=== PATIENT | female | born 1970 | race Caucasian/White ===

== ENCOUNTER 2019-04-23 10:41 | Emergency (ER) | payer BC ==
[2019-04-23 11:32] LABS: Absolute Lymphocytes (CBC) 1.4 K/uL (0.7-4.9); Basophils % 0.6 % (0-1.3); Lymphocytes % 22.6 % (15.3-44.8); RBC Red Blood Cell Count 4.83 M/uL (3.86-4.86)
[2019-04-23] MEDS ORDERED: NA CHLORIDE 0.9% 500 ML ONE ×2 (11:36→12:48)
[2019-04-23 11:52] LABS: Albumin 3.5 g/dL (3.4-5.0); Bilirubin Total 0.3 mg/dL (0.2-1.0); Magnesium 2.2 mg/dL (1.8-2.4); Protein, Total 7.1 g/dL (6.4-8.2)
--- NOTE | 2019-04-23 12:54 | EDPHYS ---
Physician Documentation [facility] Name: Alana Lowry Age: 49 yrs Sex: Female : 1970 Arrival Date: 04/23/2019 Time: 10:44 Bed 13 Private MD: David Harrison ED Physician Marjorie Mcclelland HPI: 04/23 11:05 This 49 yrs old Female presents to ER via Ambulatory with complaints of la1 Abnormal Lab Results. 11:05 The patient presents with abdominal pain in the left lower quadrant. Onset: The la1 symptoms/episode began/occurred 4 day(s) ago. The symptoms do not radiate. Associated signs and symptoms: Pertinent positives: fever, nausea. The symptoms are described as sharp. Modifying factors: The symptoms are alleviated by nothing, the symptoms are aggravated by alcohol. Severity of pain: At its worst the pain was mild. The patient has not experienced similar symptoms in the past. Pt reports flu like sx since Sunday, hx of renal issues, states she feels like her electrolytes are off. Pt is taking steroids chronically for assumed renal insufficiency, has increased her steroid dose at home already. was ill with similar sx earlier this week. . 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 - Social history:: Smoking status: Patient/guardian denies using tobacco. - Ebola Screening: : No symptoms or risks identified at this time. ROS: 11:07 Eyes: Negative for injury, pain, redness, and discharge, ENT: Negative for injury, la1 pain, and discharge, Neck: Negative for injury, pain, and swelling, Cardiovascular: Negative for chest pain, palpitations, and edema. 11:07 Back: Negative for injury and pain, : Negative for injury, bleeding, discharge, and swelling, MS/Extremity: Negative for injury and deformity, Neuro: Negative for headache, weakness, numbness, tingling, and seizure. 11:07 Constitutional: Positive for fever, Negative for poor PO intake. 11:07 Respiratory: Positive for cough, with green sputum. 11:07 Abdomen/GI: Positive for abdominal pain, Negative for vomiting. Exam: 11:08 Constitutional: This is a well developed, well nourished patient who is awake, alert, la1 and in no acute distress. Head/Face: Normocephalic, atraumatic. Eyes: Pupils equal round and reactive to light, extra-ocular motions intact. Periorbital areas with no swelling, redness, or edema. ENT: Mucous membranes moist. Neck: Trachea midline, no thyromegaly or masses palpated, and no cervical lymphadenopathy. Supple, full range of motion without nuchal rigidity, or vertebral point tenderness. No Meningismus. Chest/axilla: Normal chest wall appearance and motion. Nontender with no deformity. No lesions are appreciated. Cardiovascular: Regular rate and rhythm with a normal S1 and S2. No gallops, murmurs, or rubs. Normal PMI, no JVD. No pulse deficits. Respiratory: Lungs have equal breath sounds bilaterally, clear to auscultation No rales, rhonchi or wheezes noted. No increased work of breathing, no retractions or nasal flaring. Abdomen/GI: Soft, non-tender, with normal bowel sounds. No distension or tympany. No guarding or rebound. No evidence of tenderness throughout. Back: No spinal tenderness. No costovertebral tenderness. Full range of motion. MS/ Extremity: Pulses equal, no cyanosis. Neurovascular intact. Full, normal range of motion. Neuro: Awake and alert, GCS 15, oriented to person, place, time, and situation. Normal gait. Vital Signs: 10:57 BP 130 / 84; Pulse 92; Resp 16; Temp 97.8; Pulse Ox 98% ; Weight 81.65 kg; Height 5 ft. sv 0 in. (152.40 cm); Pain 0/10; 12:12 BP 108 / 72; Pulse 80; Resp 18; Pulse Ox 100% on R/A; aj1 13:39 BP 103 / 66; Pulse 82; Resp 18; Pulse Ox 97% on R/A; aj1 10:57 Body Mass Index 35.15 (81.65 kg, 152.40 cm) sv MDM: 10:54 Patient medically screened. la1 12:50 Data reviewed: vital signs, nurses notes, lab test result(s), and as a result, I will la1 discharge patient. Data interpreted: Pulse oximetry: on room air is 100 %. Interpretation: normal. Counseling: I had a detailed discussion with the patient and/or guardian regarding: the historical points, exam findings, and any diagnostic results supporting the discharge/admit diagnosis, lab results, the need for outpatient follow up, a family practitioner, to return to the emergency department if symptoms worsen or persist or if there are any questions or concerns that arise at home. Special discussion: Based on the patient's Hx, exam, and Dx evaluation, there is no indication for emergent surgery or inpatient Tx. It is understood by the patient/guardian that if the Sx's persist or worsen they need to return immediately for re-evaluation. I discussed with the patient/guardian that the patient's current presentation does not indicate dosing of antibiotics. They should follow-up with their primary care provider and return if the symptoms persist or progress. ED course: pt tolerating PO, moderate hyponartremia identified on labs which could also be chronic in nature, pt well educated on subject and will increase her sodium intake with salt and water at home. Pt given strict return precautions.. 04/23 11:05 Order name: CBC with Diff; Complete Time: 11:59 04/23 11:05 Order name: CMP; Complete Time: 11:59 04/23 11:05 Order name: Magnesium; Complete Time: 11:59 04/23 11:05 Order name: Flu; Complete Time: 12:10 04/23 11:05 Order name: IV; Complete Time: 11:29 la Administered Medications: 11:56 Drug: NS 0.9% 500 ml Route: IV; Rate: bolus; Site: right forearm; aj1 13:40 Follow up: IV Status: Completed infusion; IV Intake: 500ml aj1 12:49 Drug: NS 0.9% 500 ml Route: IV; Rate: bolus; Site: right forearm; aj1 13:40 Follow up: IV Status: Completed infusion; IV Intake: 500ml aj1 Disposition: 17:46 Co-signature as Attending Physician, Marjorie Mcclelland MD. ma2 Disposition: 04/23/19 12:53 Discharged to Home. Impression: Influenza due to certain identified influenza viruses, Hyponatremia. - Condition is Stable. - Discharge Instructions: Hyponatremia, Influenza, Adult, [id number], Hyponatremia, [id number], Rehydration, Adult. - Medication Reconciliation Form, Thank You Letter form. - Follow up: Private Physician; When: 2 - 3 days; Reason: Recheck today's complaints, Re-evaluation by your physician. Follow up: Emergency Department; When: As needed; Reason: Worsening of condition. - Problem is new. - Symptoms have improved. Signatures: Dispatcher [employer] EDMS Maddie Garza RN RN aj1 Marika Gonzalez RN RN sv Attema, Lee, TEACHER HOME THERAPY-C TEACHER HOME THERAPY-Cla1 Marjorie Mcclelland MD MD ma2 Corrections: (The following items were deleted from the chart) 13:40 12:53 04/23/2019 12:53 Discharged to Home. Impression: Influenza due to certain aj1 identified influenza viruses; Hyponatremia. Condition is Stable. Forms are Medication Reconciliation Form, Thank You Letter, Antibiotic Education, Prescription Opioid Use. Follow up: Private Physician; When: 2 - 3 days; Reason: Recheck today's complaints, Re-evaluation by your physician. Follow up: Emergency Department; When: As needed; Reason: Worsening of condition. Problem is new. Symptoms have improved. la1
--- NOTE | 2019-04-23 12:54 | ER ---
Nurse's Notes [facility] Name: Alana Lowry Age: 49 yrs Sex: Female : 1970 Arrival Date: 04/23/2019 Time: 10:44 Bed 13 Private MD: David Harrison Diagnosis: Influenza due to certain identified influenza viruses;Hyponatremia Presentation: 04/23 10:54 Presenting complaint: Patient states: body aches since Sunday, has hx of congenital sv hydrorenal hyprplasia and believes her electrolytes are "off". c/o lightheaded. Transition of care: patient was not received from another setting of care. Onset of symptoms was April 18, 2019. Risk Assessment: Do you want to hurt yourself or someone else? Patient reports no desire to harm self or others. Initial Sepsis Screen: Does the patient meet any 2 criteria? No. Patient's initial sepsis screen is negative. Does the patient have a suspected source of infection? No. Patient's initial sepsis screen is negative. Care prior to arrival: None. 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 - Social history:: Smoking status: Patient/guardian denies using tobacco. - Ebola Screening: : No symptoms or risks identified at this time. Screenin:30 Abuse screen: Denies threats or abuse. Denies injuries from another. Nutritional aj1 screening: No deficits noted. Tuberculosis screening: No symptoms or risk factors identified. 13:39 Fall Risk None identified. aj1 Assessment: 11:30 General: Appears in no apparent distress. comfortable, Behavior is calm, cooperative, aj1 appropriate for age. Pain: Denies pain. Neuro: Level of Consciousness is awake, alert, obeys commands, Oriented to person, place, time, situation. Cardiovascular: Patient's skin is warm and dry. Respiratory: Reports cough that is persistent Airway is patent Respiratory effort is even, unlabored, Respiratory pattern is regular, symmetrical, Breath sounds are clear bilaterally. Denies shortness of breath. GI: Abdomen is non-distended, Bowel sounds present X 4 quads. Reports nausea. : No signs and/or symptoms were reported regarding the genitourinary system. EENT: No signs and/or symptoms were reported regarding the EENT system. Derm: No signs and/or symptoms reported regarding the dermatologic system. Skin is pink, warm \\T\\ dry. normal. Musculoskeletal: No signs and/or symptoms reported regarding the musculoskeletal system. Circulation, motion, and sensation intact. 12:35 Reassessment: Patient appears in no apparent distress at this time. No changes from aj1 previously documented assessment. Patient and/or family updated on plan of care and expected duration. Pain level reassessed. Patient is alert, oriented x 3, equal unlabored respirations, skin warm/dry/pink. 12:55 Reassessment: Discharge pending completion of IV fluids. aj1 13:38 Reassessment: Patient appears in no apparent distress at this time. No changes from aj1 previously documented assessment. Patient and/or family updated on plan of care and expected duration. Pain level reassessed. Patient is alert, oriented x 3, equal unlabored respirations, skin warm/dry/pink. Vital Signs: 10:57 BP 130 / 84; Pulse 92; Resp 16; Temp 97.8; Pulse Ox 98% ; Weight 81.65 kg; Height 5 ft. sv 0 in. (152.40 cm); Pain 0/10; 12:12 BP 108 / 72; Pulse 80; Resp 18; Pulse Ox 100% on R/A; aj1 13:39 BP 103 / 66; Pulse 82; Resp 18; Pulse Ox 97% on R/A; aj1 10:57 Body Mass Index 35.15 (81.65 kg, 152.40 cm) sv ED Course: 10:44 Patient arrived in ED. as 10:44 David Harrison MD is Private Physician. as 10:54 [facility]C [facility] la1 10:54 Marjorie Mcclelland MD is Attending Physician. la1 10:55 Triage completed. sv 10:57 Arm band placed on Patient placed in an exam room, on a stretcher. sv 11:07 Maddie Garza, CLAUDY is Primary Nurse. aj1 11:30 Patient has correct armband on for positive identification. Bed in low position. Call aj1 light in reach. 11:30 No provider procedures requiring assistance completed. aj1 11:31 Initial lab(s) drawn, by me, sent to lab. Inserted saline lock: 22 gauge in right aj1 forearm, using aseptic technique. Blood collected. 13:39 IV discontinued, intact, bleeding controlled, No redness/swelling at site. Pressure aj1 dressing applied. Administered Medications: 11:56 Drug: NS 0.9% 500 ml Route: IV; Rate: bolus; Site: right forearm; aj1 13:40 Follow up: IV Status: Completed infusion; IV Intake: 500ml aj1 12:49 Drug: NS 0.9% 500 ml Route: IV; Rate: bolus; Site: right forearm; aj1 13:40 Follow up: IV Status: Completed infusion; IV Intake: 500ml aj1 Intake: 13:40 IV: 500ml; Total: 500ml. aj1 13:40 IV: 500ml; Total: 1000ml. aj1 Outcome: 12:53 Discharge ordered by MD. la1 13:39 Discharged to home ambulatory. aj1 13:39 Condition: good 13:39 Discharge instructions given to patient, Instructed on discharge instructions, follow up and referral plans. Demonstrated understanding of instructions, follow-up care. 13:40 Patient left the ED. aj1 Signatures: Maddie Garza RN RN aj1 Marika Gonzalez RN RN sv Martinez, Amelia as Attema, Lee, FOUNDRY FINISHER-C FOUNDRY FINISHER-Cla1
[2019-04-23 13:47] VITALS: TEMP 97.8
[2019-04-23 13:50] VITALS: BP 103/66; O2SAT 97
== END 2019-04-23 13:40 | disposition home or self-care (01) ==
LOC: ER 10:41
DX: E87.1 Hypo-osmolality and hyponatremia (principal); J10.1 Influenza due to other identified influenza virus with other respiratory manifestations; Z88.6 Allergy status to analgesic agent
CPT/HCPCS: 96361; 85025; 36415; 83735; 80053; 87804 ×2; 96360; 99283; J7040 ×2

== ENCOUNTER 2020-08-28 05:48 | Emergency (ER) | payer BC ==
[2020-08-28 07:21] LABS: Urine Blood 2+ (Negative); Urine Glucose Negative (Negative); Urine Protein Negative (Negative); Urine Specific Gravity 1.025 (1.005-1.030)
[2020-08-28] MEDS ORDERED: NA CHLORIDE 0.9% 1,000 ML ONE (07:52)
[2020-08-28] MEDS ORDERED: MORPHINE 4 MG/ML SYR ONE (07:52)
[2020-08-28] MEDS ORDERED: ONDANSETRON 4 MG/2 ML VIAL ONE (07:52)
[2020-08-28 07:54] LABS: Urine Bacteria >50 /HPF (<20); Urine RBC NONE SEEN /HPF (NONE SEEN)
[2020-08-28 07:55] LABS: Urine Specific Gravity/Preg 1.025 (1.005-1.030)
[2020-08-28 08:01] LABS: Absolute Lymphocytes (CBC) 2.7 K/uL (0.7-4.9); Basophils % 0.8 % (0-1.3); Hematocrit 44.9 % (36.0-45.0); Lymphocytes % 22.2 % (15.3-44.8); MPV 7.8 fL (7.6-11.3); RBC Red Blood Cell Count 4.93 M/uL (3.86-4.86)
[2020-08-28] MEDS ORDERED: CEFTRIAXONE/SWI 1gm 1 GM/10 ML SYR ONE (08:17)
[2020-08-28 09:19] LABS: Albumin 3.7 g/dL (3.4-5.0); Bilirubin Direct 0.1 mg/dL (0-0.2); Bilirubin Total 0.5 mg/dL (0.2-1.0); Potassium 4.3 mmol/L (3.5-5.1); Protein, Total 7.8 g/dL (6.4-8.2)
--- NOTE | 2020-08-28 09:20 | RAD REPORT ---
EXAM DESCRIPTION: CTAbdomen Pelvis W Contrast - 08/28/2020 8:18 am CLINICAL HISTORY: Abdominal pain. Abd pain;Flank pain COMPARISON: [facility] Protocol dated 08/16/2015 TECHNIQUE: Biphasic CT imaging of the abdomen and pelvis was performed with 100 ml non-ionic IV cont rast. All CT scans are performed using dose optimization technique as appropriate and may include automated exposure control or mA/KV adjustment according to patient size. FINDINGS: The lung bases are clear. Mild diffuse fatty liver is present. There is subtle area of diminished density seen in region of españa creatic head and uncinate process. The spleen, right adrenal gland kidneys are within normal limits. 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 No bowel obstruction, free air, free fluid or abscess. Moderate stool is present throughout the colon with diverticulosis present. The appendix is normal. No evidence of significant lymphadenopathy. Mild lumbar degenerative spondylosis. Small fat containing umbilical hernia. IMPRESSION: Mild diffuse fatty liver. Subtle diminished density in the region of the pancreatic head and uncinate process without evidence pancreatic ductal dilatation. Focal fatty infiltration is a possibility, however recommend nonemergen t MRI abdomen followup to further assess the pancreas.
[2020-08-28 09:23] LABS: Urine Blood Negative (Negative); Urine Glucose Negative (Negative); Urine Protein Negative (Negative); Urine pH 8.5 (5.0-7.0)
--- NOTE | 2020-08-28 09:53 | ER ---
Nurse's Notes [facility] Name: Alana Lowry Age: 50 yrs Sex: Female : 1970 Arrival Date: 08/28/2020 Time: 05:51 Bed 8 Private MD: Diagnosis: Urinary tract infection, site not specified;Addisonian crisis-history of congenital adrenal hyperplasia;Abdominal tenderness;Abnormal findings on diagnostic imaging of other parts of digestive tract-subtle density in the pancreatic head, needs MRI TO FURTHER ASSES Presentation: 08/28 06:27 Chief complaint: Patient states: she is having left sided groin pain radiating to her bb back which is intermittent and started yesterday denies dysuria. Coronavirus screen: At this time, the client does not indicate any symptoms associated with coronavirus-19. Ebola Screen: No symptoms or risks identified at this time. Initial Sepsis Screen: Does the patient meet any 2 criteria? No. Patient's initial sepsis screen is negative. Does the patient have a suspected source of infection? No. Patient's initial sepsis screen is negative. Risk Assessment: Do you want to hurt yourself or someone else? Patient reports no desire to harm self or others. Onset of symptoms was August 27, 2020. 06:27 Method Of Arrival: Ambulatory bb 06:27 Acuity: JAMI 3 bb Triage Assessment: 06:30 General: Appears in no apparent distress. Behavior is calm, cooperative. Pain: bb Complains of pain in left groin and left lower back Pain currently is 6 out of 10 on a pain scale. Neuro: Level of Consciousness is awake, alert, obeys commands, Oriented to person, place, time, situation. Cardiovascular: Capillary refill < 3 seconds Patient's skin is warm and dry. Respiratory: Respiratory effort is even, unlabored, Respiratory pattern is regular. GI: No signs and/or symptoms were reported involving the gastrointestinal system. : Denies inability to void. Derm: Skin is pink, warm \T\ dry. Musculoskeletal: Circulation, motion, and sensation intact. 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 - Social history:: Smoking status: Patient denies any tobacco usage or history of. Patient uses alcohol, on a daily basis. Patient/guardian denies using street drugs. Screenin:17 Abuse screen: Denies threats or abuse. Nutritional screening: No deficits noted. bb Tuberculosis screening: No symptoms or risk factors identified. Fall Risk None identified. Assessment: 07:17 Reassessment: No changes from previously documented assessment. see triage assessment. bb 07:20 General: Appears in no apparent distress. uncomfortable, well groomed, well developed, sv Behavior is calm, cooperative, appropriate for age. Pain: Complains of pain in posterior aspect of left lateral abdomen, anterior aspect of left lateral abdomen and left inguinal area Pain currently is 6 out of 10 on a pain scale. Quality of pain is described as shooting, Is intermittent. Neuro: Level of Consciousness is awake, alert, obeys commands, Oriented to person, place, time, situation, Moves all extremities. Full function Gait is steady, Speech is normal. Respiratory: Airway is patent Respiratory effort is even, unlabored, Respiratory pattern is regular, symmetrical. :. Derm: Skin is intact, Skin is pink, warm \T\ dry. 07:45 Reassessment: Patient appears in no apparent distress at this time. No changes from sv previously documented assessment. Patient and/or family updated on plan of care and expected duration. Pain level reassessed. Patient is alert, oriented x 3, equal unlabored respirations, skin warm/dry/pink. 08:13 Reassessment: Pt in CT at this time. sv 09:46 Reassessment: Dr Fagan at the bedside. sv 10:10 Reassessment: Patient appears in no apparent distress at this time. Patient and/or sv family updated on plan of care and expected duration. Pain level reassessed. Patient is alert, oriented x 3, equal unlabored respirations, skin warm/dry/pink. Vital Signs: 06:27 BP 133 / 83; Pulse 80; Resp 16 S; Temp 98.3(O); Pulse Ox 97% on R/A; Weight 81.65 kg bb (R); Height 5 ft. 0 in. (152.40 cm) (R); Pain 6/10; 07:45 BP 119 / 69; Pulse 59; Resp 16; Pulse Ox 99% ; sv 08:30 Pain 4/10; sv 08:45 BP 91 / 46; Pulse 52; Resp 16; Pulse Ox 99% ; sv 09:36 BP 108 / 66; Pulse 58; Resp 16; Pulse Ox 99% ; sv 06:27 Body Mass Index 35.15 (81.65 kg, 152.40 cm) bb ED Course: 05:51 Patient arrived in ED. cf2 06:28 Triage completed. bb 06:30 Arm band placed on Patient placed in waiting room, Patient notified of wait time. bb Family accompanied patient. 06:54 Brendan Horta MD is Attending Physician. 7 07:11 Marika Gonzalez, CLAUDY is Primary Nurse. sv 07:17 Patient has correct armband on for positive identification. Bed in low position. Call bb light in reach. Adult w/ patient. 07:22 Report received from Marianna LOCO. sv 07:40 Inserted saline lock: 20 gauge in right antecubital area, using aseptic technique. sv Blood collected. 07:49 Basic Metabolic Panel Sent. sv 07:49 Hepatic Function Sent. sv 07:49 Lipase Sent. sv 08:19 CT Abd/Pelvis - IV Contrast Only In Process Unspecified. EDMS 08:19 Attending Physician role handed off by Brendan Horta MD luis 08:19 Johan Fagan MD is Attending Physician. luis 08:38 Awaiting lab results, Awaiting radiology results. sv 09:51 Frederick Morton MD is Referral Physician. luis 09:51 Galdino Boone MD is Referral Physician. luis 10:10 No provider procedures requiring assistance completed. IV discontinued, intact, sv bleeding controlled, No redness/swelling at site. Pressure dressing applied. Administered Medications: 07:45 Drug: NS 0.9% 1000 ml Route: IV; Rate: 1000 ml; Site: right antecubital; sv 09:00 Follow up: Response: No adverse reaction; IV Status: Completed infusion; IV Intake: sv 1000ml 07:45 Drug: Zofran (Ondansetron) 4 mg Route: IVP; Site: right antecubital; sv 08:30 Follow up: Response: No adverse reaction sv 07:47 Drug: morphine 4 mg {Note: rass1.} Route: IVP; Site: right antecubital; sv 08:30 Follow up: Pain 4/10 Adult; Response: No adverse reaction; Pain is decreased; RASS: sv Alert and Calm (0) 08:05 Drug: Rocephin (cefTRIAXone) 1 grams Route: IV; Rate: per protocol; Site: right sv antecubital; 08:07 Follow up: Response: No adverse reaction; IV Status: Completed infusion; IV Intake: 10mlsv 10:08 Drug: LevOfloxacin 750 mg Route: PO; sv 10:08 Follow up: Response: Medication administered at discharge. sv Intake: 08:07 IV: 10ml; Total: 10ml. sv 09:00 IV: 1000ml; Total: 1010ml. sv Outcome: 09:53 Discharge ordered by . [facility] 10:10 Discharged to home ambulatory, with family. sv 10:10 Condition: stable 10:10 Discharge instructions given to patient, Instructed on discharge instructions, follow up and referral plans. medication usage, increase fluid intake Demonstrated understanding of instructions, follow-up care, medications, Prescriptions given X 1. 10:10 Patient left the ED. sv Addendum: 08/30/2020 08:48 Addendum: Culture Results: Positive urine culture. No further action required. Bacteria a a5 sensitive to prescribed antibiotic. Signatures: Dispatcher [employer] Marika Burrell RN RN sv Anderson, Corey, MD MD cha Ballard, Brenda, RN RN bb Calderon, Audri, RN RN aa5 Almita Chester Brendan Eldridge MD MD [id number]
--- NOTE | 2020-08-28 09:54 | EDPHYS ---
Physician Documentation [facility] Name: Alana Lowry Age: 50 yrs Sex: Female : 1970 Arrival Date: 08/28/2020 Time: 05:51 Bed 8 Private MD: ED Physician Johan Fagan HPI: 08/28 07:44 This 50 yrs old Female presents to ER via Ambulatory with complaints of Groin mh7 Pain, Low Back Pain. 07:45 The patient presents with abdominal pain in the left lower quadrant. Onset: The mh7 symptoms/episode began/occurred 2 day(s) ago. The symptoms radiate to the left flank. Associated signs and symptoms: Pertinent positives: nausea, Pertinent negatives: anorexia, blood in stools, chest pain, constipation, diarrhea, dysuria, fever, headache, hematuria, palpitations, shortness of breath, vaginal discharge, vomiting, vomiting blood. The symptoms are described as intermittent, vague, waxing/waning. Modifying factors: The symptoms are alleviated by nothing, the symptoms are aggravated by nothing. Severity of pain: At its worst the pain was moderate last night, in the emergency department the pain is unchanged. 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 - Social history:: Smoking status: Patient denies any tobacco usage or history of. Patient uses alcohol, on a daily basis. Patient/guardian denies using street drugs. ROS: 07:45 Constitutional: Negative for fever, chills, and weight loss, Eyes: Negative for injury, mh7 pain, redness, and discharge, Neck: Negative for injury, pain, and swelling, Cardiovascular: Negative for chest pain, palpitations, and edema, Respiratory: Negative for shortness of breath, cough, wheezing, and pleuritic chest pain. 07:45 : Negative for injury, bleeding, discharge, and swelling, MS/Extremity: Negative for injury and deformity, Skin: Negative for injury, rash, and discoloration, Neuro: Negative for headache, weakness, numbness, tingling, and seizure, Psych: Negative for depression, anxiety, suicide ideation, homicidal ideation, and hallucinations, Allergy/Immunology: Negative for hives, rash, and allergies, Endocrine: Negative for neck swelling, polydipsia, polyuria, polyphagia, and marked weight changes, Hematologic/Lymphatic: Negative for swollen nodes, abnormal bleeding, and unusual bruising. Exam: 07:45 Constitutional: This is a well developed, well nourished patient who is awake, alert, mh7 and in no acute distress. Head/Face: Normocephalic, atraumatic. Eyes: Pupils equal round and reactive to light, extra-ocular motions intact. Lids and lashes normal. Conjunctiva and sclera are non-icteric and not injected. Cornea within normal limits. Periorbital areas with no swelling, redness, or edema. Neck: Trachea midline, no thyromegaly or masses palpated, and no cervical lymphadenopathy. Supple, full range of motion without nuchal rigidity, or vertebral point tenderness. No Meningismus. Chest/axilla: Normal chest wall appearance and motion. Nontender with no deformity. No lesions are appreciated. Cardiovascular: Regular rate and rhythm with a normal S1 and S2. No gallops, murmurs, or rubs. Normal PMI, no JVD. No pulse deficits. Respiratory: Lungs have equal breath sounds bilaterally, clear to auscultation and percussion. No rales, rhonchi or wheezes noted. No increased work of breathing, no retractions or nasal flaring. 07:45 Skin: Warm, dry with normal turgor. Normal color with no rashes, no lesions, and no evidence of cellulitis. MS/ Extremity: Pulses equal, no cyanosis. Neurovascular intact. Full, normal range of motion. Neuro: Awake and alert, GCS 15, oriented to person, place, time, and situation. Cranial nerves II-XII grossly intact. Motor strength 5/5 in all extremities. Sensory grossly intact. Cerebellar exam normal. Normal gait. Psych: Awake, alert, with orientation to person, place and time. Behavior, mood, and affect are within normal limits. 07:45 Abdomen/GI: Inspection: abdomen appears normal, Bowel sounds: normal, in all quadrants, Palpation: moderate abdominal tenderness, in the left lower quadrant, mass, is not appreciated, rebound tenderness, is not appreciated, voluntary guarding, is not appreciated, involuntary guarding, is not appreciated, no appreciated organomegaly, Rectal exam: the exam is deferred, because of patient request, Indicators: McBurney's point is not tender, Mcgrath's sign is negative, Rovsing's sign is negative, Obturator sign is negative, Psoas sign is negative, Liver: no appreciated palpable abnormalities, Hernia: not appreciated. 07:45 Back: normal spinal alignment noted, CVA tenderness, that is mild, is noted on the left, vertebral tenderness, is not appreciated, muscle spasm, is not present. Vital Signs: 06:27 BP 133 / 83; Pulse 80; Resp 16 S; Temp 98.3(O); Pulse Ox 97% on R/A; Weight 81.65 kg bb (R); Height 5 ft. 0 in. (152.40 cm) (R); Pain 6/10; 07:45 BP 119 / 69; Pulse 59; Resp 16; Pulse Ox 99% ; sv 08:30 Pain 4/10; sv 08:45 BP 91 / 46; Pulse 52; Resp 16; Pulse Ox 99% ; sv 09:36 BP 108 / 66; Pulse 58; Resp 16; Pulse Ox 99% ; sv 06:27 Body Mass Index 35.15 (81.65 kg, 152.40 cm) bb MDM: 08:19 Patient medically screened. [facility] 08/28 07:19 Order name: Urine Dipstick-Ancillary; Complete Time: 07:28 EDMD 08/28 07:21 Order name: Urine Microscopic Only; Complete Time: 08:20 08/28 07:21 Order name: Urine Culture 08/28 07:28 Order name: Basic Metabolic Panel [facility] 08/28 07:28 Order name: CBC with Diff; Complete Time: 08:20 [facility] 08/28 07:28 Order name: Hepatic Function [facility] 08/28 07:28 Order name: Lipase [facility] 08/28 07:29 Order name: Basic Metabolic Panel; Complete Time: 09:49 EDMS 08/28 07:29 Order name: Liver (Hepatic) Function; Complete Time: 09:49 EDMD 08/28 07:29 Order name: Lipase; Complete Time: 09:49 EDMD 08/28 07:30 Order name: CT Abd/Pelvis - IV Contrast Only; Complete Time: 09:49 7 08/28 07:36 Order name: Urine --Ancillary (enter results) eb 08/28 08:17 Order name: CREATININE WHOLE BLOOD; Complete Time: 08:20 EDMS 08/28 09:23 Order name: Urine Dipstick-Ancillary; Complete Time: 09:49 EDMS 08/28 06:33 Order name: Urine Dipstick-Ancillary (obtain specimen); Complete Time: 07:18 bb 08/28 07:28 Order name: IV Saline Lock; Complete Time: 07:49 mh7 08/28 07:28 Order name: Labs collected and sent; Complete Time: 07:49 7 08/28 07:30 Order name: Urine Test (obtain specimen); Complete Time: 07:30 mh7 Administered Medications: 07:45 Drug: NS 0.9% 1000 ml Route: IV; Rate: 1000 ml; Site: right antecubital; sv 09:00 Follow up: Response: No adverse reaction; IV Status: Completed infusion; IV Intake: sv 1000ml 07:45 Drug: Zofran (Ondansetron) 4 mg Route: IVP; Site: right antecubital; sv 08:30 Follow up: Response: No adverse reaction sv 07:47 Drug: morphine 4 mg {Note: rass1.} Route: IVP; Site: right antecubital; sv 08:30 Follow up: Pain 4/10 Adult; Response: No adverse reaction; Pain is decreased; RASS: sv Alert and Calm (0) 08:05 Drug: Rocephin (cefTRIAXone) 1 grams Route: IV; Rate: per protocol; Site: right sv antecubital; 08:07 Follow up: Response: No adverse reaction; IV Status: Completed infusion; IV Intake: 10mlsv 10:08 Drug: LevOfloxacin 750 mg Route: PO; sv 10:08 Follow up: Response: Medication administered at discharge. sv Disposition: 08/28/20 09:53 Discharged to Home. Impression: Urinary tract infection, site not specified, Addisonian crisis - history of congenital adrenal hyperplasia, Abdominal tenderness, Abnormal findings on diagnostic imaging of other parts of digestive tract - subtle density in the pancreatic head, needs MRI TO FURTHER ASSES. - Condition is Stable. - Discharge Instructions: Abdominal Pain, Adult, Dysuria, Urinary Tract Infection, Adult, Urinary Tract Infection, Adult, [id number], Abdominal Pain, Adult, [id number]. - Prescriptions for Levaquin 500 mg Oral Tablet - take 1 tablet by ORAL route once daily for 7 days; 7 tablet. - Medication Reconciliation Form, Thank You Letter, Antibiotic Education, Prescription Opioid Use form. - Follow up: Frederick Morton MD; When: 2 - 3 days; Reason: Recheck today's complaints, Continuance of care, Re-evaluation by your physician. Follow up: Galdino Boone MD; When: 2 - 3 days; Reason: Recheck today's complaints, Continuance of care, Re-evaluation by your physician. - Problem is new. - Symptoms have improved. Signatures: Dispatcher [employer] EDMarika Grimes RN RN Johan Ontiveros MD MD cha Ballard, Brenda, RN RN bb Holmes, Maurice, MD MD mh7 Corrections: (The following items were deleted from the chart) 09:54 09:53 08/28/2020 09:53 Discharged to Home. Impression: Urinary tract infection, site luis not specified; Addisonian crisis - history of congenital adrenal hyperplasia. Condition is Stable. Forms are Medication Reconciliation Form, Thank You Letter, Antibiotic Education, Prescription Opioid Use. Follow up: Frederick Morton; When: 2 - 3 days; Reason: Recheck today's complaints, Continuance of care, Re-evaluation by your physician. Follow up: Galdino Boone; When: 2 - 3 days; Reason: Recheck today's complaints, Continuance of care, Re-evaluation by your physician. Problem is new. Symptoms have improved. luis 09:57 09:54 08/28/2020 09:53 Discharged to Home. Impression: Urinary tract infection, site luis not specified; Addisonian crisis - history of congenital adrenal hyperplasia; Abdominal tenderness. Condition is Stable. Discharge Instructions: Dysuria, Urinary Tract Infection, Adult, Urinary Tract Infection, Adult, [id number]. Prescriptions for Levaquin 500 mg Oral Tablet - take 1 tablet by ORAL route once daily for 7 days; 7 tablet. and Forms are Medication Reconciliation Form, Thank You Letter, Antibiotic Education, Prescription Opioid Use. Follow up: Frederick Morton; When: 2 - 3 days; Reason: Recheck today's complaints, Continuance of care, Re-evaluation by your physician. Follow up: Galdino Boone; When: 2 - 3 days; Reason: Recheck today's complaints, Continuance of care, Re-evaluation by your physician. Problem is new. Symptoms have improved. [facility] 10:10 09:57 08/28/2020 09:53 Discharged to Home. Impression: Urinary tract infection, site sv not specified; Addisonian crisis - history of congenital adrenal hyperplasia; Abdominal tenderness; Abnormal findings on diagnostic imaging of other parts of digestive tract - subtle density in the pancreatic head, needs MRI TO FURTHER ASSES. Condition is Stable. Discharge Instructions: Dysuria, Urinary Tract Infection, Adult, Urinary Tract Infection, Adult, [id number], Abdominal Pain, Adult, Abdominal Pain, Adult, [id number]. Prescriptions for Levaquin 500 mg Oral Tablet - take 1 tablet by ORAL route once daily for 7 days; 7 tablet. and Forms are Medication Reconciliation Form, Thank You Letter, Antibiotic Education, Prescription Opioid Use. Follow up: Frederick Morton; When: 2 - 3 days; Reason: Recheck today's complaints, Continuance of care, Re-evaluation by your physician. Follow up: Galdino Boone; When: 2 - 3 days; Reason: Recheck today's complaints, Continuance of care, Re-evaluation by your physician. Problem is new. Symptoms have improved. [facility]
[2020-08-28] MEDS ORDERED: levoFLOXacin 750 MG TAB ONE (10:23)
[2020-08-28 10:34] VITALS: TEMP 98.3
[2020-08-28 10:36] VITALS: O2SAT 99
[2020-08-28 10:40] VITALS: BP 108/66
== END 2020-08-28 10:10 | disposition home or self-care (01) ==
LOC: ER 05:48
DX: N39.0 Urinary tract infection, site not specified (principal); E27.2 Addisonian crisis; R93.3 Abnormal findings on diagnostic imaging of other parts of digestive tract; R10.819 Abdominal tenderness, unspecified site; Q89.1 Congenital malformations of adrenal gland
CPT/HCPCS: 87088; 85025; 87086; 80048; 36415; 81025; 82565; 80076; 83690; 74177; Q9967; J0696; J7030; J2405; 81003; 81015; 87077; 87186; 96361; 96374; 96375; 99284